=== PATIENT | female | born 1935 | race Caucasian/White ===

== ENCOUNTER → 2016-11-09 | Outpatient (CLI) | payer OTHER ==
[~2016-11-09] MED LIST: ASPIRIN81 M2 PO; BETOPTIC BOTH EYES; CALTRATE PLUS1 EACH PO; CELECOXIB200 MG PO; CELEXA20 MG PO; CLONIDINE HCL0.1 MG PO; HYDROCODON-ACE1 EAC7 PO; IRON325 M1 PO; LEVOTHYROXINE50 MCG PO; LOVASTATIN10 MG PO; LOVENOX40 MG/0.4 SC; METOPROLOL TART25 MG PO; MULTIPLE VITAM1 EACH PO; TRAMADOL HCL50 MG PO; TRAZODONE HCL50 MG PO; XANAX0.5 MG PO
== END | disposition home or self-care (01) ==
DX: M17.11 Unilateral primary osteoarthritis, right knee (principal); R26.2 Difficulty in walking, not elsewhere classified; M62.81 Muscle weakness (generalized); M25.661 Stiffness of right knee, not elsewhere classified
CPT/HCPCS: 97110 GP; 97150 GO; 97161 GP; 97165 GO

== ENCOUNTER 2016-12-20 08:32 | Inpatient (IN) | payer OTHER ==
[~2016-12-20] VITALS: Ht 154.9 cm; Wt 63.8 kg
[~2016-12-20 08:32] MED LIST changes: +COMBIGAN O20 DROP/5 BOTH EYES; +LO-DOSE ASPIRIN81 M2 PO; +LUMIGAN 0.50 DROP/22 BOTH EYES; +SYNTHROID50 MCG PO; +ULTRAM50 MG PO
[2016-12-20 09:01] VITALS: BP 132/61
[2016-12-20 14:24] VITALS: BP 153/64
[2016-12-20 15:10] LABS: MCH 29.3 PG (29.0-34.0); MCHC 31.2 G/DL (30.0-36.0); MCV 93.9 FL (83-99); MEAN PLAT.VOLUME 10.6 uM^3 (9.5-12.4); PLATELET COUNT 187 K/uL (156-360); RBC DIS.WIDTH-CV 13.9 % (11.8-14.6); RBC DIS.WIDTH-SD 47.6 % (39-53); RED BLOOD COUNT 3.62 M/uL (3.80-5.20); WHITE BLOOD COUNT 6.1 K/uL (4.1-10.2)
[2016-12-20 16:10] VITALS: BP 169/73
[2016-12-20 18:45] LABS: HEMATOCRIT 33.6 % (36.0-46.0); MCV 93.6 FL (83-99)
[2016-12-20 20:46] VITALS: BP 172/73
[2016-12-21 00:30] VITALS: BP 136/63
[2016-12-21 04:20] VITALS: BP 137/63
[2016-12-21 05:43] LABS: HEMATOCRIT 33.3 % (36.0-46.0); MCV 93.8 FL (83-99)
[2016-12-21 05:58] LABS: ANION GAP 8 MEQ/L (2-14); CHLORIDE 103 MEQ/L (99-109); GFR ESTIMATE (CALCULATED) > 59 mL/min/; GLUCOSE 146 mg/dL (70-99); SAMPLE HEMOLYSIS CHECK 0; SAMPLE ICTERIC CHECK 0; SAMPLE LIPEMIA CHECK 0; SODIUM 135 MEQ/L (136-147); UREA NITROGEN (BUN) 20 mg/dL (9-23)
[2016-12-21 08:00] VITALS: BP 153/67
[2016-12-21 12:06] VITALS: BP 161/73
[2016-12-21 16:01] VITALS: BP 160/72
[2016-12-21 20:47] VITALS: BP 160/67
[2016-12-22 00:14] VITALS: BP 145/65
[2016-12-22 04:12] VITALS: BP 147/73
[2016-12-22 05:56] LABS: MCV 92.3 FL (83-99)
[2016-12-22] MEDS ORDERED: LOVENOX40 MG/0.4 SC (08:43)
[2016-12-22] MEDS ORDERED: DOCUSATE SODIU100 MG PO (08:43)
[2016-12-22] MEDS ORDERED: HYDROCODON-ACE1 EAC7 PO (08:44)
[2016-12-22 12:20] VITALS: BP 142/67
[2016-12-22 15:20] VITALS: BP 178/78
== END 2016-12-22 15:42 | DRG 470 ==
LOC: 2SOUTH 08:32 → 3WEST 14:17
PROVIDERS: Orthopaedic Surgery
PROC: 0SRC0J9 Replacement of Right Knee Joint with Synthetic Substitute, Cemented, Open Approach (ICD-10-PCS; principal; 2016-12-20)
DX: M17.11 Unilateral primary osteoarthritis, right knee (principal); F41.9 Anxiety disorder, unspecified; F32.9 Major depressive disorder, single episode, unspecified; I10 Essential (primary) hypertension; E78.5 Hyperlipidemia, unspecified; E07.9 Disorder of thyroid, unspecified; H40.9 Unspecified glaucoma
CPT/HCPCS: 73560; 80048; 85014; 85018; 85027; J0690; J1170; J1650; J2250; J2405; J3010; J7050

== ENCOUNTER 2017-06-01 12:17 | Emergency (ER) | payer OTHER ==
[~2017-06-01] VITALS: Ht 154.9 cm; Wt 58.1 kg
[~2017-06-01 12:17] MED LIST changes: +DOCUSATE SODIU100 MG PO
[2017-06-01 13:03] LABS: EOSINOPHIL (%) 0.4 % (0-5); HEMATOCRIT 35.9 % (36.0-46.0); IMMATURE GRANULOCYTE (%) 0.5 % (0.0-0.7); INSTRUMENT ABS NEUTROPHIL CT 5.7 K/uL; MCHC 32.3 G/DL (30.0-36.0); MCV 92.8 FL (83-99); MEAN PLAT.VOLUME 10.1 uM^3 (9.5-12.4); MONOCYTE (%) 8.5 % (3-12); MONOCYTE COUNT 0.7 K/uL (0-0.8); NEUTROPHIL (%) 66.9 % (45-76); NEUTROPHIL COUNT 5.7 K/uL (1.8-6.4); PLATELET COUNT 202 K/uL (156-360); RBC DIS.WIDTH-CV 15.8 % (11.8-14.6); RBC DIS.WIDTH-SD 52.8 % (39-53); RED BLOOD COUNT 3.87 M/uL (3.80-5.20); WHITE BLOOD COUNT 8.5 K/uL (4.1-10.2)
[2017-06-01 13:11] LABS: CHLORIDE 104 mEq/L (99-109); POTASSIUM 4.5 mEq/L (3.7-5.4); SODIUM 137 mEq/L (136-147)
[2017-06-01 13:12] LABS: MAGNESIUM 2.2 mg/dL (1.3-2.7)
[2017-06-01 13:13] LABS: GLUCOSE 139 mg/dL (70-99)
[2017-06-01 13:15] LABS: ANION GAP 14 MEQ/L (2-14); TOTAL BILIRUBIN 0.7 mg/dL (0.0-1.0)
[2017-06-01 13:17] LABS: ALKALINE PHOSPHATASE 75 IU/L (3-129); GFR ESTIMATE (CALCULATED) > 59 mL/min/
[2017-06-01 13:18] LABS: UREA NITROGEN (BUN) 25 mg/dL (9-23)
[2017-06-01 13:20] LABS: CREATINE KINASE 60 IU/L (1-294); TOTAL CK 60 IU/L (1-294)
[2017-06-01 13:23] LABS: TROP-I INTERPRETATION NEGATIVE; TROPONIN-I 0.02 ng/mL (0.0-0.30)
[2017-06-01 13:26] LABS: CK-MB 2.1 ng/mL (0.0-4.9)
[2017-06-01] MEDS ORDERED: DOXYCYCLINE MO100 M1 PO (16:18)
[2017-06-01 16:56] VITALS: BP 143/97
== END 2017-06-01 16:57 | disposition home or self-care (01) ==
LOC: EME 12:17
PROVIDERS: Emergency Medicine
DX: J18.9 Pneumonia, unspecified organism (principal); J90 Pleural effusion, not elsewhere classified; R74.0 Nonspecific elevation of levels of transaminase and lactic acid dehydrogenase [LDH]; I10 Essential (primary) hypertension; E03.9 Hypothyroidism, unspecified; Z90.10 Acquired absence of unspecified breast and nipple; Z91.041 Radiographic dye allergy status
CPT/HCPCS: 71010; 74176; 80053; 81003; 82550; 82553; 83605; 83735; 83880; 84443; 84484; 85025; 93005; 99281; 99285

== ENCOUNTER 2017-06-03 21:28 | Inpatient (IN) | payer OTHER ==
[~2017-06-03] VITALS: Ht 154.9 cm; Wt 63.6 kg
[~2017-06-03 21:28] MED LIST changes: +DOXYCYCLINE MO100 M1 PO
[2017-06-03 22:50] LABS: MCH 29.8 PG (29.0-34.0); MCHC 32.2 G/DL (30.0-36.0); MCV 92.5 FL (83-99); MEAN PLAT.VOLUME 10.9 uM^3 (9.5-12.4); NRBC (%) 0.2 /100 WBC (0-0); PLATELET COUNT 201 K/uL (156-360); RBC DIS.WIDTH-CV 16.9 % (11.8-14.6); RBC DIS.WIDTH-SD 55.1 % (39-53); WHITE BLOOD COUNT 10.5 K/uL (4.1-10.2)
[2017-06-03 22:58] LABS: CHLORIDE 104 mEq/L (99-109); POTASSIUM 4.2 mEq/L (3.7-5.4); SODIUM 137 mEq/L (136-147)
[2017-06-03 22:59] LABS: GLUCOSE 157 mg/dL (70-99)
[2017-06-03 23:01] LABS: ANION GAP 16 MEQ/L (2-14)
[2017-06-03 23:04] LABS: GFR ESTIMATE (CALCULATED) 57 mL/min/; UREA NITROGEN (BUN) 37 mg/dL (9-23)
[2017-06-04] VITALS (7 sets, daily range): BP systolic 131–149; BP diastolic 61–78
[2017-06-04 00:10] LABS: EOSINOPHIL (%) 0.6 % (0-5); EOSINOPHIL COUNT 0.1 K/uL (0-0.3); IMMATURE GRANULOCYTE (%) 0.5 % (0.0-0.7); IMMATURE GRANULOCYTE COUNT 0.1 K/uL; INSTRUMENT ABS NEUTROPHIL CT 7.8 K/uL; LYMPHOCYTE COUNT 1.8 K/uL (1.0-2.8); MONOCYTE (%) 10.1 % (3-12); MONOCYTE COUNT 1.1 K/uL (0-0.8); NEUTROPHIL COUNT 7.8 K/uL (1.8-6.4)
[2017-06-04 00:24] LABS: TOTAL BILIRUBIN 0.7 mg/dL (0.0-1.0)
[2017-06-04 00:25] LABS: ALKALINE PHOSPHATASE 100 IU/L (3-129)
[2017-06-04 00:27] LABS: DIRECT BILIRUBIN 0.4 mg/dL (0.0-0.3)
[2017-06-04 00:49] LABS: BASE EXCESS -2.8 mEq/L (-3 to +3); BICARBONATE 21.9 mEq/L (22-26); CARBOXY HGB 1.7 % (0-5); COMMENTS - BLOOD GASES C+A+; DEVICE NC; METHEMOGLOBIN 0.8 % (0-1.5); O2 FLOW 2 L/MIN; PCO2 37 mm Hg (35-45); PO2 99 mm Hg (80-100); SITE RR; pH 7.38 (7.35-7.45)
[2017-06-04 00:52] LABS: POINT-OF-CARE METER ID UU13113702; POINT-OF-CARE USER ID 515033160
[2017-06-04] MEDS ORDERED: PROLIA60 MG/1 ML SC (00:58)
[2017-06-04] MEDS ORDERED: SEROQUEL12.5 MG PO (00:59)
[2017-06-04 01:00] LABS: CARBON DIOXIDE (BICARBONATE) 24.1 MEQ/L (20-31)
[2017-06-04] MEDS ORDERED: LO-DOSE ASPIRIN81 M2 PO (01:00)
[2017-06-04] MEDS ORDERED: MIRALAX17 GM PO (01:01)
[2017-06-04 01:04] LABS: INTER. NORMALIZED RATIO 1.4; PROTHROMBIN TIME 15.2 SEC (10.2-12.9)
[2017-06-04 01:06] LABS: PTT 25.2 SEC (25-37)
[2017-06-04 02:19] LABS: SAMPLE HEMOLYSIS CHECK 0; SAMPLE ICTERIC CHECK 0; SAMPLE LIPEMIA CHECK 0
[2017-06-04 08:26] LABS: HEMATOCRIT 34.9 % (36.0-46.0); MCH 30.4 PG (29.0-34.0); MCHC 32.1 G/DL (30.0-36.0); MCV 94.8 FL (83-99); MEAN PLAT.VOLUME 10.8 uM^3 (9.5-12.4); NRBC (%) 0.2 /100 WBC (0-0); PLATELET COUNT 175 K/uL (156-360); RBC DIS.WIDTH-SD 56.4 % (39-53); RED BLOOD COUNT 3.68 M/uL (3.80-5.20); WHITE BLOOD COUNT 9.6 K/uL (4.1-10.2)
[2017-06-04 08:51] LABS: ALKALINE PHOSPHATASE 125 IU/L (3-129); ANION GAP 8 MEQ/L (2-14); CHLORIDE 105 MEQ/L (99-109); GFR ESTIMATE (CALCULATED) > 59 mL/min/; GLUCOSE 129 mg/dL (70-99); MAGNESIUM 2.2 mg/dl (1.3-2.7); POTASSIUM 4.1 MEQ/L (3.7-5.4); SAMPLE HEMOLYSIS CHECK 0; SAMPLE ICTERIC CHECK 0; SAMPLE LIPEMIA CHECK 0; SODIUM 136 MEQ/L (136-147); TOTAL BILIRUBIN 0.5 MG/DL (0.0-1.0); UREA NITROGEN (BUN) 35 mg/dL (9-23)
[2017-06-05 04:21] VITALS: BP 137/60
[2017-06-05 07:11] LABS: EOSINOPHIL (%) 0 % (0-5); HEMATOCRIT 37.9 % (36.0-46.0); IMMATURE GRANULOCYTE (%) 0.5 % (0.0-0.7); INSTRUMENT ABS NEUTROPHIL CT 6.4 K/uL; LYMPHOCYTE COUNT 0.9 K/uL (1.0-2.8); MCH 31.2 PG (29.0-34.0); MCHC 32.7 G/DL (30.0-36.0); MCV 95.2 FL (83-99); MEAN PLAT.VOLUME 11.1 uM^3 (9.5-12.4); MONOCYTE (%) 3.6 % (3-12); MONOCYTE COUNT 0.3 K/uL (0-0.8); NEUTROPHIL (%) 84.6 % (45-76); NEUTROPHIL COUNT 6.4 K/uL (1.8-6.4); NRBC (%) 0.3 /100 WBC (0-0); PLATELET COUNT 164 K/uL (156-360); RBC DIS.WIDTH-CV 17.3 % (11.8-14.6); RBC DIS.WIDTH-SD 57.6 % (39-53); RED BLOOD COUNT 3.98 M/uL (3.80-5.20); WHITE BLOOD COUNT 7.5 K/uL (4.1-10.2)
[2017-06-05 07:23] VITALS: BP 166/70
[2017-06-05 07:25] LABS: INTER. NORMALIZED RATIO 1.3; PROTHROMBIN TIME 14.2 SEC (10.2-12.9)
[2017-06-05 07:28] LABS: PTT 26.3 SEC (25-37)
[2017-06-05 07:35] LABS: ALKALINE PHOSPHATASE 123 IU/L (3-129); ANION GAP 10 MEQ/L (2-14); CHLORIDE 105 MEQ/L (99-109); GFR ESTIMATE (CALCULATED) > 59 mL/min/; GLUCOSE 131 mg/dL (70-99); POTASSIUM 4.3 MEQ/L (3.7-5.4); SAMPLE HEMOLYSIS CHECK 0; SAMPLE ICTERIC CHECK 0; SAMPLE LIPEMIA CHECK 0; SODIUM 139 MEQ/L (136-147); TOTAL BILIRUBIN 0.5 MG/DL (0.0-1.0); UREA NITROGEN (BUN) 34 mg/dL (9-23)
[2017-06-05 08:17] LABS: ADD MIUA? YES; BILIRUBIN NEGATIVE; BLOOD NEGATIVE; COLOR YELLOW ((YELLOW)); GLUCOSE (STRIP) NEGATIVE; KETONES NEGATIVE; LEUKOCYTES TRACE; NITRITE NEGATIVE; PROTEIN (STRIP) 100; SPECIFIC GRAVITY 1.029 (1.000-1.030); UROBILINOGEN 0.2 MG/DL (0.2-1.0)
[2017-06-05 08:30] LABS: AMORPHOUS URATES CRYSTALS 3+; BACTERIA NONE SEEN /HPF; CASTS NONE SEEN /LPF; CRYSTALS PRESENT; EPITHELIAL CELLS NONE SEEN /HPF; MUCUS NONE SEEN /LPF; RED BLOOD CELLS NONE SEEN /HPF (0-5); WHITE BLOOD CELLS 0-5 /HPF (0-5)
[2017-06-05 09:25] LABS: METH RESISTANT S AUREUS PCR NEGATIVE (NEGATIVE); PROBE CHECK PASS; SPECIMEN PROCESSING CONTROL PASS
[2017-06-05 10:01] LABS: TYPE OF FLUID PLEURAL
[2017-06-05 10:23] LABS: BODY FLUID RBC'S 5000 /MM^3 (0-100); BODY FLUID WBC'S 176 /MM^3 (0-500)
[2017-06-05 10:30] VITALS: BP 141/64
[2017-06-05 10:37] LABS: INTERNAL CONTROL VALID? YES
[2017-06-05 11:00] LABS: BODY FLUID EOSINOPHILS 0 % (0-25); MONONUCLEAR WBC'S 69 %; POLYNUCLEAR WBC'S 31 % (0-25)
[2017-06-05 11:01] LABS: BODY FLUID LDH 49 IU/L; BODY FLUID PROTEIN < 3.0 G/DL
[2017-06-05 15:20] VITALS: BP 128/58
[2017-06-05 19:59] VITALS: BP 129/83
[2017-06-05 23:16] VITALS: BP 110/53
[2017-06-06 04:12] VITALS: BP 122/58
[2017-06-06 07:07] LABS: EOSINOPHIL (%) 0 % (0-5); HEMATOCRIT 35.9 % (36.0-46.0); IMMATURE GRANULOCYTE (%) 0.4 % (0.0-0.7); INSTRUMENT ABS NEUTROPHIL CT 9.6 K/uL; LYMPHOCYTE COUNT 0.8 K/uL (1.0-2.8); MCH 30.8 PG (29.0-34.0); MCHC 32.6 G/DL (30.0-36.0); MCV 94.5 FL (83-99); MEAN PLAT.VOLUME 10.7 uM^3 (9.5-12.4); MONOCYTE (%) 3.5 % (3-12); MONOCYTE COUNT 0.4 K/uL (0-0.8); NEUTROPHIL (%) 88.6 % (45-76); NEUTROPHIL COUNT 9.6 K/uL (1.8-6.4); PLATELET COUNT 165 K/uL (156-360); RBC DIS.WIDTH-CV 17.3 % (11.8-14.6); RBC DIS.WIDTH-SD 58.3 % (39-53); WHITE BLOOD COUNT 10.8 K/uL (4.1-10.2)
[2017-06-06 07:20] VITALS: BP 140/65
[2017-06-06 07:38] LABS: ANION GAP 7 MEQ/L (2-14); CHLORIDE 106 MEQ/L (99-109); GFR ESTIMATE (CALCULATED) > 59 mL/min/; GLUCOSE 139 mg/dL (70-99); POTASSIUM 4.2 MEQ/L (3.7-5.4); SAMPLE HEMOLYSIS CHECK 0; SAMPLE ICTERIC CHECK 0; SAMPLE LIPEMIA CHECK 0; SODIUM 137 MEQ/L (136-147); UREA NITROGEN (BUN) 29 mg/dL (9-23)
[2017-06-06 11:50] VITALS: BP 119/59
[2017-06-06 15:15] VITALS: BP 132/60
[2017-06-06 19:40] VITALS: BP 135/72
[2017-06-07] VITALS (7 sets, daily range): BP systolic 117–155; BP diastolic 54–73
[2017-06-08 08:15] VITALS: BP 132/60
[2017-06-08] MEDS ORDERED: TRAZODONE HCL50 MG PO (13:53)
[2017-06-08 16:11] VITALS: BP 127/60
[2017-06-09 00:21] VITALS: BP 124/57
[2017-06-09 07:00] VITALS: BP 135/60
[2017-06-09 10:46] LABS: HEMATOCRIT 35.3 % (36.0-46.0); MCHC 32.6 G/DL (30.0-36.0); MCV 95.1 FL (83-99); PLATELET COUNT 139 K/uL (156-360); RBC DIS.WIDTH-SD 58.5 % (39-53); RED BLOOD COUNT 3.71 M/uL (3.80-5.20); WHITE BLOOD COUNT 10.3 K/uL (4.1-10.2)
[2017-06-09 11:36] LABS: ALKALINE PHOSPHATASE 107 IU/L (3-129); ANION GAP ND MEQ/L (2-14); CHLORIDE 108 MEQ/L (99-109); GFR ESTIMATE (CALCULATED) > 59 mL/min/; GLUCOSE 98 mg/dL (70-99); POTASSIUM 4.2 MEQ/L (3.7-5.4); SAMPLE HEMOLYSIS CHECK 0; SAMPLE ICTERIC CHECK 0; SAMPLE LIPEMIA CHECK 0; SODIUM 139 MEQ/L (136-147); TOTAL BILIRUBIN 0.7 MG/DL (0.0-1.0); UREA NITROGEN (BUN) 24 mg/dL (9-23)
[2017-06-09] MEDS ORDERED: LISINOPRIL5 MG PO (14:56)
[2017-06-09] MEDS ORDERED: PREDNISONE10 MG PO (14:57)
[2017-06-09] MEDS ORDERED: VENTOLIN HFA18 GM IH (14:58)
[2017-06-09] MEDS ORDERED: LASIX20 MG PO (15:05)
[2017-06-09 15:40] VITALS: BP 121/59
== END 2017-06-09 18:16 | disposition home health service (06) | DRG 444 ==
LOC: EME → EDBD 21:28 → 2EAST 23:46 → EDOF 23:46 → ENRESERV 23:48 → 2EAST 06-04 01:47 → ENRESERV 06-04 01:49 → CANRESERV 06-04 01:49 → 2EAST 06-09 18:16
PROVIDERS: Hospitalist; Physician Assistant Medical; Radiology Diagnostic Radiology
DX: K81.0 Acute cholecystitis (principal); G93.41 Metabolic encephalopathy; I11.0 Hypertensive heart disease with heart failure; I50.21 Acute systolic (congestive) heart failure; J15.9 Unspecified bacterial pneumonia; E87.2 Acidosis; E86.0 Dehydration; R74.0 Nonspecific elevation of levels of transaminase and lactic acid dehydrogenase [LDH]; I27.20 Pulmonary hypertension, unspecified; I08.3 Combined rheumatic disorders of mitral, aortic and tricuspid valves; I71.2 Thoracic aortic aneurysm, without rupture; R39.2 Extrarenal uremia; E78.5 Hyperlipidemia, unspecified; E03.9 Hypothyroidism, unspecified; F32.9 Major depressive disorder, single episode, unspecified; F41.0 Panic disorder [episodic paroxysmal anxiety]; H40.9 Unspecified glaucoma; Z96.641 Presence of right artificial hip joint; Z96.651 Presence of right artificial knee joint; Z79.82 Long term (current) use of aspirin; Z87.11 Personal history of peptic ulcer disease; Z98.41 Cataract extraction status, right eye; Z98.42 Cataract extraction status, left eye; Z90.710 Acquired absence of both cervix and uterus
CPT/HCPCS: 36600; 49405; 71010; 71020; 71250; 74176; 76705; 76942; 80048; 80053; 80076; 81003; 82140; 82550; 82553; 82803; 82945; 82948; 83605; 83615 91; 83735; 83880; 84157; 84443; 84484; 85025; 85027; 85610; 85730; 87040; 87070; 87075; 87205; 87449; 87641; 88108; 89051; 93005; 93306; 94799; 99202; 99281; 99285; C1769; G0480; J0295; J0456; J0696; J1644; J2060; J2543; J2920; J3010; J3370; J7030; J7050; J7512